=== PATIENT | female | born 1960 | race African-American/Black ===

== ENCOUNTER 2019-01-08 15:15 | Emergency (ER) | payer SELFPAY ==
[~2019-01-08] VITALS: Ht 157.5 cm; Wt 55.0 kg
[2019-01-08] MEDS ORDERED: FAMOTIDINE 20MG/2ML VIAL IV STA (17:31)
[2019-01-08] MEDS ORDERED: SODIUM CHLORIDE 0.9% 1,000 ML IV ONE (17:31)
[2019-01-08] MEDS ORDERED: KETOROLAC 30MG/ML VIAL IV STA (17:31)
[2019-01-08 17:47] LABS: BASOPHILS % 0.4 % (0.0-2.0); HEMOGLOBIN. 16.8 g/dL (12.0-16.0); LYMPHOCYTES % 16.6 % (20.0-50.0); MEAN CORPUSCULAR HEMOGLOBIN 31.4 pg (28.0-32.0); MEAN CORPUSCULAR VOLUME 91.6 fL (81.0-99.0); MEAN PLATELET VOLUME 8.3 fl (7.4-10.4); MONOCYTES % 3.4 % (2.0-8.0); NEUTROPHILS % 79.6 % (40.0-76.0); PLATELET 332 x1000/uL (130-400); RED BLOOD CELL COUNT 5.35 mill/uL (4.2-5.4); RED CELL DISTRIBUTION WIDTH 12.7 % (11.6-14.6)
[2019-01-08 17:49] LABS: CHLORIDE 95 mEq/L (98-107)
[2019-01-08 18:29] LABS: CLARITY URINE CLEAR (CLEAR); COLOR URINE YELLOW (YELLOW); KETONES URINE 3+ (NEGATIVE); LEUKOCYTE ESTERASE URINE NEGATIVE (NEGATIVE); NITRITE URINE NEGATIVE (NEGATIVE); OCCULT BLOOD URINE TRACE (NEGATIVE); PROTEIN URINE 2+ (NEGATIVE); SPECIFIC GRAVITY URINE 1.038 (1.005-1.030); UROBILINOGEN URINE 0.2 E.U./dL (0.2-1.0)
[2019-01-08] MEDS ORDERED: CLONIDINE 0.2MG TABLET PO ONE (19:15)
[2019-01-08 20:32] VITALS: BP 116/74
== END 2019-01-08 20:41 | disposition home or self-care (01) ==
LOC: ER 15:15
DX: K80.80 Other cholelithiasis without obstruction (principal); R10.9 Unspecified abdominal pain; I10 Essential (primary) hypertension; E11.9 Type 2 diabetes mellitus without complications
CPT/HCPCS: 36415; 76705; 80053; 81003; 82962; 83690; 85025; 96361; 96374; 96375; 99284; J1885; J3490; J7030

== ENCOUNTER 2023-11-04 10:11 | Emergency (ER) | payer MEDICAID, OTHER ==
[~2023-11-04] VITALS: Ht 165.1 cm; Wt 60.0 kg
[2023-11-04] MEDS ORDERED: metformin (10:25)
[2023-11-04 10:27] VITALS: BP 146/119; PULSE 107; RESP 14; TEMP 98.4; O2SAT 99
[2023-11-04 11:08] LABS: BASOPHILS % 0.8 % (0.0-2.0); EOSINOPHILS % 2.3 % (0.0-5.0); HEMATOCRIT. 42.1 % (36.0-48.0); HEMOGLOBIN. 14.2 g/dL (12.0-16.0); LYMPHOCYTES % 37.7 % (20.0-50.0); MEAN CORPUSCULAR HEMOGLOBIN 31.4 pg (28.0-32.0); MEAN CORPUSCULAR HGB CONC 33.8 g/dL (31.0-37.0); MEAN PLATELET VOLUME 7.7 fl (7.4-10.4); MONOCYTES % 6.3 % (2.0-8.0); NEUTROPHILS % 52.9 % (40.0-76.0); PLATELET 299 x1000/uL (130-400); RED BLOOD CELL COUNT 4.52 mill/uL (4.2-5.4); RED CELL DISTRIBUTION WIDTH 12.9 % (11.6-14.6); WHITE BLOOD COUNT 6.9 x1000/uL (4.5-11.0)
[2023-11-04 11:31] LABS: ALANINE AMINOTRANSFERASE 33 IU/L (10-49); ALBUMIN 4.7 g/dL (3.2-4.8); ASPARTATE AMINOTRANSFERASE 43 IU/L (<34); CALCIUM 9.9 mg/dL (8.7-10.4); CARBON DIOXIDE 26 mEq/L (21-32); CHLORIDE 101 mEq/L (98-107); CREATININE 1.4 mg/dL (0.6-1.0); GLUCOSE 239 mg/dL (70-105); POTASSIUM 4.3 mEq/L (3.5-5.1); PROTEIN TOTAL 8.5 g/dL (6.0-8.3); SODIUM 136 mEq/L (136-145); TROPONIN I HIGH SENSITIVITY 5 ng/L (3.0-34); UREA NITROGEN BLOOD 37 mg/dL (9-23)
== END 2023-11-04 14:47 | disposition short-term general hospital (02) ==
LOC: ER 10:11 → CANBEDREQ 13:02 → ER 14:47
DX: R55 Syncope and collapse (principal); E11.9 Type 2 diabetes mellitus without complications
CPT/HCPCS: 80053; 83880; 85025; 84484; 36415; 71045; 93005; 99285; Z7610 ×3

== ENCOUNTER 2024-11-18 07:22 | Emergency (ER) | payer OTHER ==
[~2024-11-18] VITALS: Ht 157.5 cm; Wt 55.0 kg
[~2024-11-18 07:22] MED LIST: metformin
[2024-11-18 07:24] VITALS: O2SAT 98
[2024-11-18] MEDS: METOCLOPRAMIDE HCL 10MG/2ML VIAL IV ONE (07:45)
[2024-11-18 08:30] LABS: BASOPHILS % 0.6 % (0.0-2.0); EOSINOPHILS % 1.4 % (0.0-5.0); HEMATOCRIT. 39.7 % (36.0-48.0); HEMOGLOBIN. 13.3 g/dL (12.0-16.0); LYMPHOCYTES % 39.4 % (20.0-50.0); MEAN CORPUSCULAR HEMOGLOBIN 31.8 pg (28.0-32.0); MEAN CORPUSCULAR HGB CONC 33.6 g/dL (31.0-37.0); MEAN CORPUSCULAR VOLUME 94.8 fL (81.0-99.0); MEAN PLATELET VOLUME 7.6 fl (7.4-10.4); MONOCYTES % 6.7 % (2.0-8.0); NEUTROPHILS % 51.9 % (40.0-76.0); PLATELET 261 x1000/uL (130-400); RED BLOOD CELL COUNT 4.19 mill/uL (4.2-5.4); RED CELL DISTRIBUTION WIDTH 12.1 % (11.6-14.6); WHITE BLOOD COUNT 7.5 x1000/uL (4.5-11.0)
[2024-11-18] MEDS: SODIUM CHLORIDE 0.9% 1,000 ML IV ONE (08:32)
[2024-11-18 08:37] LABS: CHLORIDE 97 mEq/L (98-107)
[2024-11-18 08:38] LABS: POTASSIUM 3.9 mEq/L (3.5-5.1); SODIUM 135 mEq/L (136-145)
[2024-11-18 08:39] LABS: CALCIUM 10.2 mg/dL (8.7-10.4); CARBON DIOXIDE 28 mEq/L (21-32)
[2024-11-18 08:44] LABS: CREATININE 1.8 mg/dL (0.6-1.0); GLUCOSE 290 mg/dL (70-105); TROPONIN I HIGH SENSITIVITY 6 ng/L (3.0-34)
[2024-11-18 08:45] LABS: UREA NITROGEN BLOOD 30 mg/dL (9-23)
[2024-11-18 08:46] LABS: ALANINE AMINOTRANSFERASE 22 IU/L (10-49); ALBUMIN 4.6 g/dL (3.2-4.8); ASPARTATE AMINOTRANSFERASE 26 IU/L (<34); BILIRUBIN DIRECT 0.2 mg/dL (<=3.0)
[2024-11-18 08:47] LABS: BILIRUBIN TOTAL 0.9 mg/dL (0.1-1.0); PROTEIN TOTAL 7.2 g/dL (6.0-8.3)
[2024-11-18 10:44] LABS: TROPONIN I HIGH SENSITIVITY 8 ng/L (3.0-34)
[2024-11-18] MEDS ORDERED: ONDA4TAB50 MT (13:00)
[2024-11-18 13:41] VITALS: BP 98/65; PULSE 100; RESP 16; TEMP 37.2; O2SAT 98
== END 2024-11-18 13:44 | disposition home or self-care (01) ==
LOC: ER 07:23
DX: R11.2 Nausea with vomiting, unspecified (principal); I25.2 Old myocardial infarction; E11.9 Type 2 diabetes mellitus without complications
CPT/HCPCS: 80076; 80048; 83690; 85025; 84484; 36415; 71045; 93005; 96374; 99285; J2765; J7030; Z7610